=== PATIENT | male | born 1965 | race Caucasian/White ===

== ENCOUNTER 2017-09-09 05:23 | Emergency (ER) | payer OTHER ==
[2017-09-09] MEDS ORDERED: Famotidine 20 MG/2 ML SDV IVPUSH ONE (05:25)
[2017-09-09] MEDS ORDERED: Sodium Chloride 0.9% 2.5 ML Syringe FLUSH PRN ×2 (05:25)
[2017-09-09] MEDS ORDERED: Sodium Chloride 0.9% 10 ML Syringe FLUSH PRN (05:25)
[2017-09-09] MEDS ORDERED: Aspirin 81 MG Tab.Chew PO ONE (05:25)
[2017-09-09] MEDS ORDERED: Sodium Chloride 0.9% 1,000 ML IV ONE (05:25)
--- NOTE | 2017-09-09 05:33 | EDM.PDOC ---
<CulbertsonAndrew Mesfin - Last Filed: 09/09/17 11:27> ED HPI GENERAL MEDICAL PROBLEM - General Stated Complaint: SHORTNES OF BREATH Time Seen by Provider: 09/09/17 05:25 - History of Present Illness INITIAL COMMENTS - FREE TEXT/NARRATIVE: Patient was seen and examined as above, agree with above Patient was provided diltiazem on arrival to the ER he has remained rate controlled since he is been in the ER for a total of 7 hours, we are on diversion today available and did speak with Dr. Owen ortho rn [employer] consultant and formulated plan as patient does not want to be transferred for observation He has remained asymptomatic no fever nausea vomiting chills sweats no chest pain shortness breath headache dizziness palpitation no bowel or urine symptoms He has remained hemodynamically stable his rate is in the 70s repeate EKG on file HEENT within normal limits her chest clear throughout CV irregular rate and rhythm/A. 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 Lab as below EKG Chest 1 view Repeat EKG Impression Atrial fibrillation with rate control Therapeutics Again patient offered admission he declines as we have no beds in the facility and would require transfer Patient will be discharged with follow-up with cardiology referral for reevaluation within 1 week Return if symptoms persist or worsen or new concerning symptoms develop loPressor 5 mg IV Diltiazem to 60 mg ER one by mouth daily #30 no refill 0 though 20 mg by mouth daily #30 no refill Definitive diagnosi pending reevaluation and review of aboves - Related Data Allergies Allergy/AdvReac Type Severity Reaction Status Date / Time No Known Allergies Allergy Verified 09/09/17 05:36 Home Meds: Home Meds . [No Known Home Meds] 09/09/17 [History] ED ROS GENERAL - Review of Systems Review Of Systems: See Below ED EXAM, GENERAL - Physical Exam Exam: See Below Course - Vital Signs Last Recorded V/S: Last Vital Signs Temp 96.9 F 09/09/17 05:34 Pulse 71 09/09/17 11:50 Resp 16 09/09/17 11:50 BP 124/92 H 09/09/17 11:50 Pulse Ox 100 09/09/17 11:50 - Orders/Labs/Meds Orders: Active Orders 24 hr Category Date Time Status EKG 12 Lead [EKG Documentation Completion] [RC] STAT Care 09/09/17 11:24 Active EKG Documentation Completion [RC] STAT Care 09/09/17 06:37 Active UA W/MICROSCOPIC [URIN] Stat Lab 09/09/17 06:20 Ordered Labs: Laboratory Tests 09/09/17 09/09/17 09/09/17 Range/Units 05:00 05:20 05:20 WBC 10.02 (4.0-11.0) K/uL RBC 5.49 (4.50-5.90) M/uL Hgb 17.2 H (13.0-17.0) g/dL Hct 49.1 (38.0-50.0) % MCV 89.4 (80.0-98.0) fL MCH 31.3 (27.0-32.0) pg MCHC 35.0 (31.0-37.0) g/dL RDW Std Deviation 42.6 (28.0-62.0) fl RDW Coeff of Eleni 13 (11.0-15.0) % Plt Count 248 (150-400) K/uL MPV 11.30 (7.40-12.00) fL Neut % (Auto) 52.5 (48.0-80.0) % Lymph % (Auto) 33.1 (16.0-40.0) % Jenkins % (Auto) 11.9 (0.0-15.0) % Eos % (Auto) 1.9 (0.0-7.0) % Baso % (Auto) 0.6 (0.0-1.5) % Neut # (Auto) 5.3 (1.4-5.7) K/uL Lymph # (Auto) 3.3 H (0.6-2.4) K/uL Jenkins # (Auto) 1.2 H (0.0-0.8) K/uL Eos # (Auto) 0.2 (0.0-0.7) K/uL Baso # (Auto) 0.1 (0.0-0.1) K/uL Nucleated RBC % 0.0 /100WBC Nucleated RBCs # 0 K/uL INR 0.98 Sodium (136-148) mmol/L Potassium (3.5-5.1) mmol/L Chloride (98-107) mmol/L Carbon Dioxide (21.0-32.0) mmol/L BUN (7.0-18.0) mg/dL Creatinine (0.8-1.3) mg/dL Est Cr Clr Drug Dosing mL/min Estimated GFR (MDRD) ml/min Glucose (74-106) mg/dL Calcium (8.5-10.1) mg/dL Total Bilirubin (0.2-1.0) mg/dL AST (15-37) IU/L ALT (14-63) IU/L Alkaline Phosphatase (46-116) U/L Troponin I (0.000-0.056) ng/mL Total Protein (6.4-8.2) g/dL Albumin (3.4-5.0) g/dL Globulin (2.0-3.5) g/dL Albumin/Globulin Ratio (1.3-2.8) TSH 3rd Generation 2.56 (0.36-3.74) uIU/mL Urine Color Urine Appearance Urine pH (5.0-8.0) Ur Specific [place] (1.001-1.035) Urine Protein (NEGATIVE) mg/dL Urine Glucose (UA) (NEGATIVE) mg/dL Urine Ketones (NEGATIVE) mg/dL Urine Occult Blood (NEGATIVE) Urine Nitrite (NEGATIVE) Urine Bilirubin (NEGATIVE) Urine Urobilinogen (<2.0) EU/dL Ur Leukocyte Esterase (NEGATIVE) Urine RBC (0-2/HPF) Urine WBC (0-5/HPF) Ur Epithelial Cells (NONE-FEW) Urine Bacteria (NEGATIVE) Urine Mucus (NONE-MOD) 09/09/17 09/09/17 Range/Units 05:20 06:20 WBC (4.0-11.0) K/uL RBC (4.50-5.90) M/uL Hgb (13.0-17.0) g/dL Hct (38.0-50.0) % MCV (80.0-98.0) fL MCH (27.0-32.0) pg MCHC (31.0-37.0) g/dL RDW Std Deviation (28.0-62.0) fl RDW Coeff of Eleni (11.0-15.0) % Plt Count (150-400) K/uL MPV (7.40-12.00) fL Neut % (Auto) (48.0-80.0) % Lymph % (Auto) (16.0-40.0) % Jenkins % (Auto) (0.0-15.0) % Eos % (Auto) (0.0-7.0) % Baso % (Auto) (0.0-1.5) % Neut # (Auto) (1.4-5.7) K/uL Lymph # (Auto) (0.6-2.4) K/uL Jenkins # (Auto) (0.0-0.8) K/uL Eos # (Auto) (0.0-0.7) K/uL Baso # (Auto) (0.0-0.1) K/uL Nucleated RBC % /100WBC Nucleated RBCs # K/uL INR Sodium 140 (136-148) mmol/L Potassium 4.1 (3.5-5.1) mmol/L Chloride 106 (98-107) mmol/L Carbon Dioxide 27.2 (21.0-32.0) mmol/L BUN 17 (7.0-18.0) mg/dL Creatinine 1.0 (0.8-1.3) mg/dL Est Cr Clr Drug Dosing 95.92 mL/min Estimated GFR (MDRD) > 60.0 ml/min Glucose 96 (74-106) mg/dL Calcium 8.6 (8.5-10.1) mg/dL Total Bilirubin 0.4 (0.2-1.0) mg/dL AST 33 (15-37) IU/L ALT 41 (14-63) IU/L Alkaline Phosphatase 75 (46-116) U/L Troponin I < 0.050 (0.000-0.056) ng/mL Total Protein 7.1 (6.4-8.2) g/dL Albumin 3.9 (3.4-5.0) g/dL Globulin 3.2 (2.0-3.5) g/dL Albumin/Globulin Ratio 1.2 L (1.3-2.8) TSH 3rd Generation (0.36-3.74) uIU/mL Urine Color YELLOW Urine Appearance CLEAR Urine pH 5.5 (5.0-8.0) Ur Specific [place] <= 1.005 (1.001-1.035) Urine Protein NEGATIVE (NEGATIVE) mg/dL Urine Glucose (UA) NEGATIVE (NEGATIVE) mg/dL Urine Ketones NEGATIVE (NEGATIVE) mg/dL Urine Occult Blood NEGATIVE (NEGATIVE) Urine Nitrite NEGATIVE (NEGATIVE) Urine Bilirubin NEGATIVE (NEGATIVE) Urine Urobilinogen 0.2 (<2.0) EU/dL Ur Leukocyte Esterase NEGATIVE (NEGATIVE) Urine RBC NONE SEEN (0-2/HPF) Urine WBC 0-1 (0-5/HPF) Ur Epithelial Cells RARE (NONE-FEW) Urine Bacteria RARE (NEGATIVE) Urine Mucus LIGHT (NONE-MOD) Meds: Medications Discontinued Medications Generic Name Dose Route Start Last Admin Trade Name Freq PRN Reason Stop Dose Admin Aspirin 324 mg 09/09/17 05:25 09/09/17 05:34 Aspirin PO 09/09/17 05:26 324 mg ONETIME ONE Administration Diltiazem HCl 20 mg 09/09/17 06:00 09/09/17 06:05 Diltiazem IVPUSH 09/09/17 06:01 20 mg ONETIME ONE Administration Famotidine 20 mg 09/09/17 05:25 09/09/17 05:34 Pepcid IVPUSH 09/09/17 05:26 20 mg ONETIME ONE Administration Sodium Chloride 1,000 mls @ 999 mls/hr 09/09/17 05:25 09/09/17 05:25 Normal Saline IV 09/09/17 06:25 999 mls/hr .Bolus ONE Administration Sodium Chloride 1,000 mls @ 125 mls/hr 09/09/17 07:45 09/09/17 09:30 Normal Saline IV 999 mls/hr STAT BRITTANEY Infusion Metoprolol Tartrate 5 mg 09/09/17 10:38 09/09/17 10:57 Lopressor IVPUSH 09/09/17 10:39 5 mg ONETIME ONE Administration Rivaroxaban 20 mg 09/09/17 11:37 09/09/17 11:46 Xarelto PO 09/09/17 11:38 20 mg ONETIME ONE Administration Sodium Chloride 2.5 ml 09/09/17 05:25 Saline Flush FLUSH ASDIRECTED PRN Keep Vein Open Sodium Chloride 10 ml 09/09/17 05:25 Saline Flush FLUSH ASDIRECTED PRN Keep Vein Open Sodium Chloride 2.5 ml 09/09/17 05:25 Saline Flush FLUSH ASDIRECTED PRN Keep Vein Open Departure - Departure Time of Disposition: 11:35 Disposition: Home, Self-Care 01 Condition: Fair Clinical Impression: Atrial fibrillation with controlled ventricular rate - Discharge Information Instructions: Atrial Fibrillation, [id number] Referrals: PCP,None [Primary Care Provider] - Forms: ED Department Discharge Additional Instructions: Medication as prescribed Return if symptoms persist or worsen or if new concerning symptoms develop Follow-up with cardiology 1 week, ER referral provided You will also require to establish primary care provider, phone number provided below [facility] Primary Care - Non-Interventional Cardiology [address] [place] [id number] [facility] - Primary Care [address] [place] [phone] The following information is given to patients seen in the emergency department who are being discharged to home. This information is to outline your options for follow-up care. We provide all patients seen in our emergency department with a follow-up referral. The need for follow-up, as well as the timing and circumstances, are variable depending upon the specifics of your emergency department visit. If you don't have a primary care physician on staff, we will provide you with a referral. We always advise you to contact your personal physician following an emergency department visit to inform them of the circumstance of the visit and for follow-up with them and/or the need for any referrals to a consulting specialist. The emergency department will also refer you to a specialist when appropriate. This referral assures that you have the opportunity for follow-up care with a specialist. All of these measure are taken in an effort to provide you with optimal care, which includes your follow-up. Under all circumstances we always encourage you to contact your private physician who remains a resource for coordinating your care. When calling for follow-up care, please make the office aware that this follow-up is from your recent emergency room visit. If for any reason you are refused follow-up, please contact the [facility] emergency department at and asked to speak to the emergency department charge nurse. - My Orders Last 24 Hours: My Active Orders 09/09/17 06:20 UA W/MICROSCOPIC [URIN] Stat 09/09/17 06:37 EKG Documentation Completion [RC] STAT - Assessment/Plan Last 24 Hours: My Active Orders 09/09/17 06:20 UA W/MICROSCOPIC [URIN] Stat 09/09/17 06:37 EKG Documentation Completion [RC] STAT <Michael Bonilla - Last Filed: 09/10/17 06:41> ED HPI GENERAL MEDICAL PROBLEM - General Source of Information: Reports: Patient - History of Present Illness INITIAL COMMENTS - FREE TEXT/NARRATIVE: HISTORY AND PHYSICAL: History of present illness: 52-year-old male presenting emergency department with chief complaint of palpitations starting at 2:30 AM this morning. At 2:30 AM patient states the he was awoken from sleep with palpitations as well as heartburn. No associated chest pain, shortness of breath, diaphoresis, nausea, or vomiting. States that he tried to drink some water to help relieve his heartburn as well as do vagal maneuvers to try to stop his heart racing. Has never had this happen before and currently takes no medications and has no previous cardiopulmonary history. Does admit to stopping smoking within the past day. He has a 10 pack smoking history. No history of A. fib in the past or palpitations in the past. Currently denies any chest pain, shortness of breath, syncopal episodes, or focal neurologic deficits. Until this event he was feeling his normal self. Currently working here in [place] but is from [place], [place] originally. Does not regularly get heartburn. Drinks alcohol social but not an every day drinker. Initial EKG shows A. fib rate of [address] changes. Patient was given 20 of Cardizem IV with heart rate decreasing into the high 60s to low 70s. [id number] score 0% 0630- CBC, CMP, troponin, INR, chest x-ray were unremarkable. 0645- Repeat EKG a-fib rate [address] changes Review of systems: As per history of present illness and below otherwise all systems reviewed and negative. Past medical history: As per history of present illness and as reviewed below otherwise noncontributory. Surgical history: As per history of present illness and as reviewed below otherwise noncontributory. Social history: No reported history of drug or alcohol abuse. Family history: As per history of present illness and as reviewed below otherwise noncontributory. Physical exam: HEENT: Atraumatic, normocephalic, pupils reactive, negative for conjunctival pallor or scleral icterus, mucous membranes moist, throat clear, neck supple, nontender, trachea midline. Lungs: Clear to auscultation, breath sounds equal bilaterally, chest nontender. Heart: S1S2, irregular irregular, negative for clicks, rubs, or JVD. Abdomen: Soft, nondistended, nontender. Negative for masses or hepatosplenomegaly. Negative for costovertebral tenderness. Pelvis: Stable nontender. Genitourinary: Deferred. Rectal: Deferred. Extremities: Atraumatic, negative for cords or calf pain. Neurovascular unremarkable. Neuro: Awake, alert, oriented. Cranial nerves II through XII unremarkable. Cerebellum unremarkable. Motor and sensory unremarkable throughout. Exam nonfocal. Diagnostics: CBC, CMP, troponin, INR, chest x-ray, EKG Therapeutics: ASA 324 mg by mouth 1, famotidine 20 mg IV 1, 1 L normal saline 1, Cardizem 20mg IV x1 Impression: A. fib with RVR Plan: [] ED ROS GENERAL - Review of Systems Review Of Systems: ROS reveals no pertinent complaints other than HPI. ED EXAM, GENERAL - Physical Exam Exam: See Below Course - Vital Signs Last Recorded V/S: Last Vital Signs Temp 96.9 F 09/09/17 05:34 Pulse 71 09/09/17 11:50 Resp 16 09/09/17 11:50 BP 124/92 H 09/09/17 11:50 Pulse Ox 100 09/09/17 11:50 - Orders/Labs/Meds Labs: Laboratory Tests 09/09/17 09/09/17 09/09/17 Range/Units 05:00 05:20 05:20 WBC 10.02 (4.0-11.0) K/uL RBC 5.49 (4.50-5.90) M/uL Hgb 17.2 H (13.0-17.0) g/dL Hct 49.1 (38.0-50.0) % MCV 89.4 (80.0-98.0) fL MCH 31.3 (27.0-32.0) pg MCHC 35.0 (31.0-37.0) g/dL RDW Std Deviation 42.6 (28.0-62.0) fl RDW Coeff of Eleni 13 (11.0-15.0) % Plt Count 248 (150-400) K/uL MPV 11.30 (7.40-12.00) fL Neut % (Auto) 52.5 (48.0-80.0) % Lymph % (Auto) 33.1 (16.0-40.0) % Jenkins % (Auto) 11.9 (0.0-15.0) % Eos % (Auto) 1.9 (0.0-7.0) % Baso % (Auto) 0.6 (0.0-1.5) % Neut # (Auto) 5.3 (1.4-5.7) K/uL Lymph # (Auto) 3.3 H (0.6-2.4) K/uL Jenkins # (Auto) 1.2 H (0.0-0.8) K/uL Eos # (Auto) 0.2 (0.0-0.7) K/uL Baso # (Auto) 0.1 (0.0-0.1) K/uL Nucleated RBC % 0.0 /100WBC Nucleated RBCs # 0 K/uL INR 0.98 Sodium (136-148) mmol/L Potassium (3.5-5.1) mmol/L Chloride (98-107) mmol/L Carbon Dioxide (21.0-32.0) mmol/L BUN (7.0-18.0) mg/dL Creatinine (0.8-1.3) mg/dL Est Cr Clr Drug Dosing mL/min Estimated GFR (MDRD) ml/min Glucose (74-106) mg/dL Calcium (8.5-10.1) mg/dL Total Bilirubin (0.2-1.0) mg/dL AST (15-37) IU/L ALT (14-63) IU/L Alkaline Phosphatase (46-116) U/L Troponin I (0.000-0.056) ng/mL Total Protein (6.4-8.2) g/dL Albumin (3.4-5.0) g/dL Globulin (2.0-3.5) g/dL Albumin/Globulin Ratio (1.3-2.8) TSH 3rd Generation 2.56 (0.36-3.74) uIU/mL Urine Color Urine Appearance Urine pH (5.0-8.0) Ur Specific [place] (1.001-1.035) Urine Protein (NEGATIVE) mg/dL Urine Glucose (UA) (NEGATIVE) mg/dL Urine Ketones (NEGATIVE) mg/dL Urine Occult Blood (NEGATIVE) Urine Nitrite (NEGATIVE) Urine Bilirubin (NEGATIVE) Urine Urobilinogen (<2.0) EU/dL Ur Leukocyte Esterase (NEGATIVE) Urine RBC (0-2/HPF) Urine WBC (0-5/HPF) Ur Epithelial Cells (NONE-FEW) Urine Bacteria (NEGATIVE) Urine Mucus (NONE-MOD) 09/09/17 09/09/17 Range/Units 05:20 06:20 WBC (4.0-11.0) K/uL RBC (4.50-5.90) M/uL Hgb (13.0-17.0) g/dL Hct (38.0-50.0) % MCV (80.0-98.0) fL MCH (27.0-32.0) pg MCHC (31.0-37.0) g/dL RDW Std Deviation (28.0-62.0) fl RDW Coeff of Eleni (11.0-15.0) % Plt Count (150-400) K/uL MPV (7.40-12.00) fL Neut % (Auto) (48.0-80.0) % Lymph % (Auto) (16.0-40.0) % Jenkins % (Auto) (0.0-15.0) % Eos % (Auto) (0.0-7.0) % Baso % (Auto) (0.0-1.5) % Neut # (Auto) (1.4-5.7) K/uL Lymph # (Auto) (0.6-2.4) K/uL Jenkins # (Auto) (0.0-0.8) K/uL Eos # (Auto) (0.0-0.7) K/uL Baso # (Auto) (0.0-0.1) K/uL Nucleated RBC % /100WBC Nucleated RBCs # K/uL INR Sodium 140 (136-148) mmol/L Potassium 4.1 (3.5-5.1) mmol/L Chloride 106 (98-107) mmol/L Carbon Dioxide 27.2 (21.0-32.0) mmol/L BUN 17 (7.0-18.0) mg/dL Creatinine 1.0 (0.8-1.3) mg/dL Est Cr Clr Drug Dosing 95.92 mL/min Estimated GFR (MDRD) > 60.0 ml/min Glucose 96 (74-106) mg/dL Calcium 8.6 (8.5-10.1) mg/dL Total Bilirubin 0.4 (0.2-1.0) mg/dL AST 33 (15-37) IU/L ALT 41 (14-63) IU/L Alkaline Phosphatase 75 (46-116) U/L Troponin I < 0.050 (0.000-0.056) ng/mL Total Protein 7.1 (6.4-8.2) g/dL Albumin 3.9 (3.4-5.0) g/dL Globulin 3.2 (2.0-3.5) g/dL Albumin/Globulin Ratio 1.2 L (1.3-2.8) TSH 3rd Generation (0.36-3.74) uIU/mL Urine Color YELLOW Urine Appearance CLEAR Urine pH 5.5 (5.0-8.0) Ur Specific [place] <= 1.005 (1.001-1.035) Urine Protein NEGATIVE (NEGATIVE) mg/dL Urine Glucose (UA) NEGATIVE (NEGATIVE) mg/dL Urine Ketones NEGATIVE (NEGATIVE) mg/dL Urine Occult Blood NEGATIVE (NEGATIVE) Urine Nitrite NEGATIVE (NEGATIVE) Urine Bilirubin NEGATIVE (NEGATIVE) Urine Urobilinogen 0.2 (<2.0) EU/dL Ur Leukocyte Esterase NEGATIVE (NEGATIVE) Urine RBC NONE SEEN (0-2/HPF) Urine WBC 0-1 (0-5/HPF) Ur Epithelial Cells RARE (NONE-FEW) Urine Bacteria RARE (NEGATIVE) Urine Mucus LIGHT (NONE-MOD) Meds: Medications Discontinued Medications Generic Name Dose Route Start Last Admin Trade Name Freq PRN Reason Stop Dose Admin Aspirin 324 mg 09/09/17 05:25 09/09/17 05:34 Aspirin PO 09/09/17 05:26 324 mg ONETIME ONE Administration Diltiazem HCl 20 mg 09/09/17 06:00 09/09/17 06:05 Diltiazem IVPUSH 09/09/17 06:01 20 mg ONETIME ONE Administration Famotidine 20 mg 09/09/17 05:25 09/09/17 05:34 Pepcid IVPUSH 09/09/17 05:26 20 mg ONETIME ONE Administration Sodium Chloride 1,000 mls @ 999 mls/hr 09/09/17 05:25 09/09/17 05:25 Normal Saline IV 09/09/17 06:25 999 mls/hr .Bolus ONE Administration Sodium Chloride 1,000 mls @ 125 mls/hr 09/09/17 07:45 09/09/17 09:30 Normal Saline IV 999 mls/hr STAT BRITTANEY Infusion Metoprolol Tartrate 5 mg 09/09/17 10:38 09/09/17 10:57 Lopressor IVPUSH 09/09/17 10:39 5 mg ONETIME ONE Administration Rivaroxaban 20 mg 09/09/17 11:37 09/09/17 11:46 Xarelto PO 09/09/17 11:38 20 mg ONETIME ONE Administration Sodium Chloride 2.5 ml 09/09/17 05:25 Saline Flush FLUSH ASDIRECTED PRN Keep Vein Open Sodium Chloride 10 ml 09/09/17 05:25 Saline Flush FLUSH ASDIRECTED PRN Keep Vein Open Sodium Chloride 2.5 ml 09/09/17 05:25 Saline Flush FLUSH ASDIRECTED PRN Keep Vein Open
[2017-09-09 05:58] LABS: CHLORIDE,CL 106 mmol/L (98-107); SODIUM,NA 140 mmol/L (136-148)
[2017-09-09] MEDS ORDERED: Diltiazem 25 MG/5 ML SDV IVPUSH ONE (06:00)
[2017-09-09] MEDS ORDERED: Sodium Chloride 0.9% 1,000 ML IV SCH (07:45)
--- NOTE | 2017-09-09 09:30 | CR ---
EXAM DATE: 09/09/17 PATIENT'S AGE: 52 Patient: BRYAN SUAREZ Facility: [place], [place] Site . Site : 1965 Study: XRay Chest [id number]/3/2018 6:12:39 AM Ordering Physician: Chad Rodriguez Final Report: INDICATION: Palpitations TECHNIQUE: Chest 1 view COMPARISON: None FINDINGS: Cardiovascular and mediastinum: Heart size and vasculature are normal in caliber and appearance. Lungs and pleural spaces: Lungs are clear. No sign of infiltrate or mass. No sign of pleural effusion. No pneumothorax. Bones and soft tissues: No significant findings. IMPRESSION: No acute or significant findings. Dictated by Sohail Martinez MD @ Sep 09 2017 6:16AM (Electronic Signature) Report Signed by Proxy. [facility]
[2017-09-09] MEDS ORDERED: Metoprolol Tartrate 5 MG/5 ML SDV IVPUSH ONE (10:38)
[2017-09-09] MEDS ORDERED: Rivaroxaban 10 MG Tab PO ONE (11:37)
== END 2017-09-09 11:50 | disposition home or self-care (01) ==
LOC: MW.ED 05:23
DX: I48.91 Unspecified atrial fibrillation (principal)
CPT/HCPCS: 36415; 71045; 80053; 81001; 84443; 84484; 85025; 85610; 93005; 96361; 96374; 96375; 99285; A9270; J3490; J7040

== ENCOUNTER 2017-09-29 17:11 | Emergency (ER) | payer OTHER ==
--- NOTE | 2017-09-29 17:25 | EDM.PDOC ---
ED HPI GENERAL MEDICAL PROBLEM - General Chief Complaint: ENT Problem Stated Complaint: SWOLLEN RT SIDE FACE Time Seen by Provider: 09/29/17 17:16 - History of Present Illness INITIAL COMMENTS - FREE TEXT/NARRATIVE: HISTORY AND PHYSICAL: History of present illness: Patient is a 52-year-old white male sensory concern of swelling and tenderness in the right parotid region 1 day this been no fever chills nausea vomiting trauma or other concern he is up-to-date on his immunizations Review of systems: As per history of present illness and below otherwise all systems reviewed and negative. Past medical history: As per history of present illness and as reviewed below otherwise noncontributory. Surgical history: As per history of present illness and as reviewed below otherwise noncontributory. Social history: No reported history of drug or alcohol abuse. Family history: As per history of present illness and as reviewed below otherwise noncontributory. Physical exam: HEENT: Atraumatic, normocephalic, pupils reactive, negative for conjunctival pallor or scleral icterus, mucous membranes moist, throat clear, neck supple, nontender, trachea midline. Tenderness and swelling over his right parotid gland no fluctuance oropharynx unremarkable Lungs: Clear to auscultation, breath sounds equal bilaterally, chest nontender. Heart: S1S2, regular, negative for clicks, rubs, or JVD. Abdomen: Soft, nondistended, nontender. Negative for masses or hepatosplenomegaly. Negative for costovertebral tenderness. Pelvis: Stable nontender. Genitourinary: Deferred. Rectal: Deferred. Extremities: Atraumatic, negative for cords or calf pain. Neurovascular unremarkable. Neuro: Awake, alert, oriented. Cranial nerves II through XII unremarkable. Cerebellum unremarkable. Motor and sensory unremarkable throughout. Exam nonfocal. Diagnostics: None Therapeutics: None Impression: #1 parotitis Definitive disposition and diagnosis as appropriate pending reevaluation and review of above. - Related Data Allergies Allergy/AdvReac Type Severity Reaction Status Date / Time No Known Allergies Allergy Verified 09/09/17 05:36 Home Meds: Home Meds . [No Known Home Meds] 09/09/17 [History] Past Medical History - Past Health History Medical/Surgical History: Denies Medical/Surgical History ED ROS GENERAL - Review of Systems Review Of Systems: ROS reveals no pertinent complaints other than HPI. ED EXAM, GENERAL - Physical Exam Exam: See Below (See dictation) Departure - Departure Time of Disposition: 17:24 Disposition: Home, Self-Care 01 Condition: Good Clinical Impression: Parotitis - Discharge Information *PRESCRIPTION DRUG MONITORING PROGRAM REVIEWED*: Not Applicable *COPY OF PRESCRIPTION DRUG MONITORING REPORT IN PATIENT LYNDSAY: Not Applicable Referrals: PCP,None [Primary Care Provider] - Additional Instructions: The following information is given to patients seen in the emergency department who are being discharged to home. This information is to outline your options for follow-up care. We provide all patients seen in our emergency department with a follow-up referral. The need for follow-up, as well as the timing and circumstances, are variable depending upon the specifics of your emergency department visit. If you don't have a primary care physician on staff, we will provide you with a referral. We always advise you to contact your personal physician following an emergency department visit to inform them of the circumstance of the visit and for follow-up with them and/or the need for any referrals to a consulting specialist. The emergency department will also refer you to a specialist when appropriate. This referral assures that you have the opportunity for followup care with a specialist. All of these measure are taken in an effort to provide you with optimal care, which includes your followup. Under all circumstances we always encourage you to contact your private physician who remains a resource for coordinating your care. When calling for followup care, please make the office aware that this follow-up is from your recent emergency room visit. If for any reason you are refused follow-up, please contact the [facility] emergency department at and asked to speak to the emergency department charge nurse. LISA [facility] - ENT [address] [place] [id number] Augmentin as prescribed lemon drops as directed follow-up ENT above call to schedule appointment return as needed as discussed
== END 2017-09-29 17:53 | disposition home or self-care (01) ==
LOC: MW.ED 17:11
DX: K11.20 Sialoadenitis, unspecified (principal)
CPT/HCPCS: 99283